=== PATIENT | male | born 1960 | race African-American/Black ===

== ENCOUNTER 2018-09-30 05:30 | Day surgery (SDC) | payer MEDICARE, MEDICAID ==
[2018-09-23 13:17] LABS: BASOPHILS % (AUTO) 2.1 % (0.0-2.0); EOSINOPHILS % (AUTO) 2.3 % (0.0-3.0); HEMATOCRIT 41.8 % (42.0-52.0); HEMOGLOBIN 13.1 G/DL (14.2-18.0); LYMPHOCYTES % (AUTO) 19.4 % (20.0-45.0); MEAN CORPUSCULAR VOLUME 72 FL (80-99); MONOCYTES % (AUTO) 11.7 % (1.0-10.0); NEUTROPHILS % (AUTO) 64.5 % (45.0-75.0); PLATELET COUNT 233 K/UL (150-450); RED BLOOD COUNT 5.78 M/UL (4.70-6.10); RED CELL DISTRIBUTION WIDTH 14.4 % (11.6-14.8); WHITE BLOOD COUNT 6.6 K/UL (4.8-10.8)
[2018-09-23 13:19] LABS: ANION GAP 8 mmol/L (5-15); BLOOD UREA NITROGEN 16 mg/dL (7-18); CALCIUM 9.1 MG/DL (8.5-10.1); CARBON DIOXIDE 28 MMOL/L (21-32); CHLORIDE 103 MMOL/L (98-107); CREATININE 1.1 MG/DL (0.55-1.30); POTASSIUM 3.9 MMOL/L (3.5-5.1); SODIUM 139 MMOL/L (136-145)
--- NOTE | 2018-09-23 16:55 | Diagnostic Imaging Report ---
Indication: Cough Technique: 2 views of the chest Comparison: None Findings: Lungs and pleural spaces are clear. The heart size is normal. There are mild degenerative proliferative changes of the lower thoracic spine. No significant interim change. Impression: Negative
--- NOTE | 2018-09-27 13:30 | Brief Operative Note ---
Immediate Post Operative Note Operative Note Chief Complaint: Blurry Vision Pre-op Diagnosis: Nuclear Sclerotic Cataract Right Eye Procedure: Cataract Extraction With Inner Ocular Lens Implant Right Eye Post-op Diagnosis: same as pre-op Anesthesia: MAC Specimen: none Complications: none Condition: stable Fluids: LR Estimated Blood Loss: none Drains: none Implant(s) used?: Yes Ethan Langley MD Sep 27, 2018 13:30
--- NOTE | 2018-09-27 13:32 | Operative Note - PDOC ---
Operative Note Operative Note Date of Operation/Procedure: Sep 30, 2018 Chief Complaint: Blurry Vision Pre-op Diagnosis: Nuclear Sclerotic Cataract Right Eye Procedure: Cataract Extraction With Inner Ocular Lens Implant Right Eye Post-op Diagnosis: Pseudophakia Post-op Diagnosis: same as pre-op Surgeon: Ethan Langley MD Anesthesia: MAC Specimen: none Complications: none Condition: stable Fluids: LR Estimated Blood Loss: none Drains: none Implant(s) used?: Yes Indications for Procedure Cataract Extraction With Inner Ocular Lens Implant Right Eye Description of Procedure Cataract extraction With IOL Ethan Langley MD Sep 27, 2018 13:32
--- NOTE | 2018-09-27 13:38 | Opthalmology H&P ---
Ophthalmology H&P H&P Chief Complaint: decreased vision in right eye HPI Vision Affects Ability to: read, manage personal affairs HPI Narrative Blurry Vision Exam Visual Acuity: OD: Hand Motion OS:20/80 Eye Exam: normal OU: external exam, palpebral fissure-width, marginal reflex distance, levator function, corneas, anterior chambers; findings: lens - Mature white cataract right eye, fundus exam - Poor view Assessment/Plan Treatment Plan: cataract extraction w/ lens implant Goals of Treatment: improvement of vision Attestation Attestation The risks and benefits of the surgery as well as alternative procedures were explained to the patient in detail. Ethan Langley MD Sep 27, 2018 13:38
--- NOTE | 2018-09-27 13:39 | Pre-Procedure Note/Attestation ---
Pre-Procedure Note/Attestation Complete Prior to Procedure Planned Procedure: right Procedure Narrative: Cataract Extraction With Inner Ocular Lens Implant Right Eye Indications for Procedure Pre-Operative Diagnosis: Nuclear Sclerotic Cataract Right Eye Attestation I attest that I discussed the nature of the procedure; its benefits; risks and complications; and alternatives (and the risks and benefits of such alternatives ), prior to the procedure, with the patient (or the patient's legal sales representative [employer]). I attest that, if there was a reasonable possibility of needing a blood transfusion, the patient (or the patient's legal sales representative [employer]) was given the [facility] standardized written summary, pursuant to the Jake [place] Blood Safety Act ([place] Health and Safety Code # 1645, as amended). I attest that I re-evaluated the patient just prior to the surgery and that there has been no change in the patient's H&P, except as documented below: Ethan Langley MD Sep 27, 2018 13:39
[2018-09-30] VITALS (8 sets, daily range): BP systolic 110–125; BP diastolic 64–88
[~2018-09-30] VITALS: Ht 172.7 cm; Wt 117.9 kg
[~2018-09-30 05:30] MED LIST: DULERA 100 MCG/13 GM INH; IBUPROFEN600 MG ORAL; VENTOLIN HFA18 GM INH
[2018-09-30] MEDS: Cyclopentolate 1% Opth Sol 2ml RIGHT EYE SCH ×3 (06:52→07:23)
[2018-09-30] MEDS: Tobramycin Op Soln 0.3% 5ml RIGHT EYE SCH ×3 (06:53→07:23)
[2018-09-30] MEDS: Tropicamide 1% Opth 15ml Soln RIGHT EYE SCH ×3 (06:53→07:23)
[2018-09-30] MEDS: Phenylephrine 10% Opth Soln 5ml RIGHT EYE SCH ×3 (06:53→07:23)
[2018-09-30] MEDS ORDERED: Akten 3.5% 1ml Btl RIGHT EYE ONE (07:00)
[2018-09-30] MEDS ORDERED: Proparacaine 0.5% Opth Soln 15ml RIGHT EYE ONE (07:00)
[2018-09-30] MEDS ORDERED: Tetracaine 0.5% Opth 4ml Soln RIGHT EYE ONE (07:00)
[2018-09-30] MEDS ORDERED: Diclofenac Sod 0.1% Op Soln RIGHT EYE SCH (07:00)
[2018-09-30] MEDS ORDERED: EPINEPHrine 1mg/1ml Amp ONE (07:35)
[2018-09-30] MEDS ORDERED: BSS 500ml btl ONE (07:35)
[2018-09-30] MEDS ORDERED: Povidone-Iodine 5% opth solution ONE (07:35)
[2018-09-30] MEDS ORDERED: BSS 15ml BTL ONE (07:35)
[2018-09-30] MEDS ORDERED: Sodium Hyaluronate 14 mg/ml 0.85ml ONE (07:35)
[2018-09-30] MEDS ORDERED: LR 1000ml 1,000 ML IVLG SCH (08:05)
--- NOTE | 2018-09-30 08:05 | Anethesia Preoperative Eval ---
Anesthesia Pre-op PMH/ROS General Date of Evaluation: Sep 30, 2018 Time of Evaluation: 08:01 Anesthesiologist: Latasha ASA Score: ASA 3 Mallampati Score Class I : Soft palate, uvula, fauces, pillars visible Class II: Soft palate, uvula, fauces visible Class III: Soft palate, base of uvula visible Class IV: Only hard plate visible Mallampati Classification: Class II Surgeon: Korin Diagnosis: R eye cataract Surgical Procedure: R eye cataract extraction Anesthesia History: none Social History: smoking - h/o Allergies: Coded Allergies: No Known Allergies (Unverified , 09/27/18) Patient NPO?: Yes Past Medical History Cardiovascular: Denies: HTN, CAD, AL, valve dz, arrhythmia, other Pulmonary: Reports: COPD; Denies: asthma, NANCY, other Gastrointestinal/Genitourinary: Reports: GERD; Denies: CRI, ESRD, other Neurologic/Psychiatric: Reports: depression/anxiety, other - chronic pain; Denies: dementia, CVA, TIA Endocrine: Reports: hypothyroidism; Denies: DM, steroids, other HEENT: Reports: cataract (L), cataract (R); Denies: glaucoma, [place] (L), [place] (R), other Hematology/Immune: Reports: DVT - h/o, other - PE; Denies: anemia, bleeding disorder Musculoskeletal/Integumentary: Denies: OA, RA, DJD, DDD, edema, other Other: obesity PMH Narrative: as above PSxH Narrative: shoulder Sx Anesthesia Pre-op Phys. Exam Physician Exam Last Vital Signs Date Time Temp Pulse Resp B/P (MAP) Pulse Ox O2 Delivery O2 Flow Rate FiO2 09/30/18 07:09 97.8 60 20 122/73 98 Room Air Constitutional: NAD Neurologic: CN 2-12 intact Cardiovascular: RRR Respiratory: CTA Gastrointestinal: other - obesity Airway Exam Mallampati Score: Class III MO: limited Neck: short ROM: limited Teeth: missing Dentures: no upper, no lower Anesthesia Pre-op A/P Labs see chart Studies Pre-op Studies: EKG - SR Risk Assessment & Plan Assessment: ASA 3 Plan: MAC Pre-Antibiotics Drug: none Casimiro Pagan MD Sep 30, 2018 08:04
[2018-09-30] MEDS ORDERED: Midazolam 2mg/2ml Inj ONE ×2 (08:07→08:30)
[2018-09-30] MEDS ORDERED: fentaNYL 100 mcg/2 mL IV PRN (08:15)
[2018-09-30] MEDS ORDERED: DiphenhydrAMINE 50mg/ml Inj IVP PRN (08:15)
[2018-09-30] MEDS ORDERED: fentaNYL 100 mcg/2 mL IV ONE (08:30)
[2018-09-30] MEDS ORDERED: LR 1000ml ONE (08:30)
[2018-09-30] MEDS ORDERED: NS Irrig 1000ml ONE (08:30)
[2018-09-30] MEDS ORDERED: Sterile Water Irrig 1000ml IRRIG ONE (08:30)
[2018-09-30] MEDS ORDERED: Propofol 200mg/20ml IV ONE (08:30)
[2018-09-30] MEDS ORDERED: acetaZOLAMIDE 500mg Inj ONE (09:03)
--- NOTE | 2018-09-30 09:37 | Immediate Post-Op Evaluation ---
Immediate Post-Op Evalulation Immediate Post-Op Evalulation Procedure: R eye cataract extraction with IOL Date of Evaluation: Sep 30, 2018 Time of Evaluation: 09:02 IV Fluids: 300 Blood Products: none Estimated Blood Loss: none Urinary Output: none Blood Pressure Systolic: 123 Blood Pressure Diastolic: 76 Pulse Rate: 67 Respiratory Rate: 20 O2 Sat by Pulse Oximetry: 98 Temperature (Fahrenheit): 98.1 Pain Score (1-10): 1 Nausea: No Vomiting: No Complications none Patient Status: awake, patent, none Hydration Status: adequate Casimiro Pagan MD Sep 30, 2018 09:37
--- NOTE | 2018-09-30 09:46 | 48 Hour Post Anesthesia Eval ---
Post Anesthesia Evaluation Procedure: R eye cataract extraction with IOL Date of Evaluation: Sep 30, 2018 Time of Evaluation: 09:45 Blood Pressure Systolic: 132 0: 59 Pulse Rate: 64 Respiratory Rate: 20 Temperature (Fahrenheit): 97.8 O2 Sat by Pulse Oximetry: 98 Airway: patent Nausea: No Vomiting: No Pain Intensity: 1 Hydration Status: adequate Cardiopulmonary Status: stable Mental Status/LOC: patient returned to baseline Follow-up Care/Observations: n/a Post-Anesthesia Complications: none Follow-up care needed: ready to discharge Casimiro Pagan MD Sep 30, 2018 09:46
[2018-09-30] MEDS ORDERED: Pilocarpine 1% Opth 15ml Soln ONE (10:45)
[2018-09-30] MEDS ORDERED: Maxitrol Opth Oint 3.5gm ONE (10:45)
[2018-09-30] MEDS ORDERED: Pred Forte 1% Opth Susp 1ml ONE (10:45)
[2018-09-30] MEDS ORDERED: Dexamethasone 4mg/ml vial ONE (10:45)
--- NOTE | 2018-10-01 14:47 | Brief Operative Note ---
Immediate Post Operative Note Operative Note Chief Complaint: blurry vision Pre-op Diagnosis: Nuclear Sclerotic Cataract Right Eye Procedure: Phaco with IOL, OD Post-op Diagnosis: Pseudophakia Post-op Diagnosis: same as pre-op Findings: consistent w/pre-op dx studies Surgeon: Korin Anesthesiologist: Latasha Anesthesia: MAC Specimen: none Complications: none Condition: stable Fluids: LR Estimated Blood Loss: none Drains: none Implant(s) used?: Yes Ethan Langley MD Oct 01, 2018 14:47
--- NOTE | 2018-10-01 14:48 | Operative Note - PDOC ---
Operative Note Operative Note Date of Operation/Procedure: Sep 30, 2018 Chief Complaint: blurry vision Pre-op Diagnosis: Nuclear Sclerotic Cataract Right Eye Procedure: Phaco with IOL, OD Post-op Diagnosis: Pseudophakia Post-op Diagnosis: same as pre-op Operative Findings: consistent w/pre-op dx studies Surgeon: Korin Anesthesiologist: Latasha Anesthesia: MAC Specimen: none Complications: none Condition: stable Fluids: LR Estimated Blood Loss: none Drains: none Implant(s) used?: Yes Indications for Procedure cataract Description of Procedure This patient has been complaining visually significant cataract in the affected eye with the best corrected visual acuity under moderate glare conditions worse. The patient complains of difficulties with glare in performing activities of daily living and wants to manage personal affairs with comfort and accuracy and see well enough to move with safety at home and outdoors. The risks, benefits and alternatives of the procedure were discussed with the patient in the office prior to scheduling surgery. All questions from the patient were answered after the surgical procedure was explained in detail. The risks of the procedure as explained to the patient include, but are not limited to, pain, infection, bleeding, loss of vision, retinal detachment, need for further surgery, loss of lens nucleus, double vision, etc. Alternative procedures were discussed which include, to do nothing or seek a second opinion. Informed consent for this procedure was obtained from the patient. The patient was referred to a primary care physician for a cardiopulmonary clearance prior to surgery, after proper evaluation was done patient was properly scheduled for outpatient surgery. The patient was brought to the operating room where the anesthesiologist established I.V. lines and cardiac monitoring leads. Mild intravenous sedation was administered. The patient was then prepared with a 5% solution of povidone -iodine to the conjunctival fornix and lashes, and a 5% solution of povidone- iodine to the lids and periorbital skin. The patient was then draped in the usual sterile fashion. A lid speculum was then placed in the operative eye. A keratome blade was then used to create a biplanar incision into the anterior chamber. Viscoelastics was then instilled into the anterior chamber. A curvilinear capsulorrhexis was then fashioned with an utrata forceps followed by hydrodissection and hydro delineation of the lens nucleus. Paracentesis incision was made at 3 o'clock with sharp blade. The phacoemulsification unit, after being properly adjusted and tested, was then used to emulsify the nucleus followed by aspiration and irrigation of residual cortical material. Healon was then instilled into the anterior chamber. The corneal wound was then enlarged to the size of the optic with the abimael keratome blade. The intraocular lens was then inspected for right power and size and thought to be satisfactory. Then the lens was gently placed in the capsular bag. Positioning within the capsular bag was confirmed by direct visualization. Optic centration was accomplished with a Sinskey hook. Viscoelastics was removed from the anterior chamber using the irrigation and aspiration unit. The corneal wound was then tested for leaks and none were found. The lid speculum were then removed. Sponge and needle counts were correct. An eye patch and shield were placed over the operative eye. The patient was taken to the recovery room in stable condition. There were no complications. The patient tolerated the procedure well. The patient was then transferred to the ambulatory surgery unit in stable and satisfactory condition , was given detailed written instructions and asked to follow up in the office the next day. Ethan Langley MD Oct 01, 2018 14:48
== END 2018-09-30 11:00 | disposition home or self-care (01) ==
LOC: SUR 05:30
DX: H25.11 Age-related nuclear cataract, right eye (principal); J44.9 Chronic obstructive pulmonary disease, unspecified; K21.9 Gastro-esophageal reflux disease without esophagitis; E03.9 Hypothyroidism, unspecified; F32.9 Major depressive disorder, single episode, unspecified; F41.9 Anxiety disorder, unspecified; G89.29 Other chronic pain; E66.9 Obesity, unspecified; Z68.41 Body mass index [BMI] 40.0-44.9, adult; Z87.891 Personal history of nicotine dependence; Z86.718 Personal history of other venous thrombosis and embolism; Z86.711 Personal history of pulmonary embolism
CPT/HCPCS: 36415; 66984; 71046; 80048; 85025; 85610; 85730; J0171; J1100; J1120; J2250; J2704; J3010; J3370; V2632; 94003; 94150

== ENCOUNTER 2018-10-28 07:00 | Day surgery (SDC) | payer MEDICARE, MEDICAID ==
--- NOTE | 2018-10-25 11:20 | Opthalmology H&P ---
Ophthalmology H&P H&P Chief Complaint: decreased vision in left eye HPI Vision Affects Ability to: read, manage personal affairs Past Ocular History: other - Psuedo OD HPI Narrative Blurry vison Exam Visual Acuity: OD 20/20 OS 20/80 Eye Exam: normal OU: external exam, palpebral fissure-width, marginal reflex distance, levator function, corneas, anterior chambers, lens, fundus exam Assessment/Plan Treatment Plan: cataract extraction w/ lens implant Goals of Treatment: improvement of vision, enhance quality of life Attestation Attestation The risks and benefits of the surgery as well as alternative procedures were explained to the patient in detail. Ethan Langley MD Oct 25, 2018 11:20
--- NOTE | 2018-10-25 11:22 | Pre-Procedure Note/Attestation ---
Pre-Procedure Note/Attestation Complete Prior to Procedure Planned Procedure: left Procedure Narrative: Cataract Extraction With IOL Implant Left Eye Indications for Procedure Pre-Operative Diagnosis: Cortical Cataract Left Eye Attestation I attest that I discussed the nature of the procedure; its benefits; risks and complications; and alternatives (and the risks and benefits of such alternatives ), prior to the procedure, with the patient (or the patient's legal telemarketing sales representative). I attest that, if there was a reasonable possibility of needing a blood transfusion, the patient (or the patient's legal telemarketing sales representative) was given the [facility] standardized written summary, pursuant to the Jake [place] Blood Safety Act ([place] Health and Safety Code # 1645, as amended). I attest that I re-evaluated the patient just prior to the surgery and that there has been no change in the patient's H&P, except as documented below: Ethan Langley MD Oct 25, 2018 11:22
[2018-10-26 09:12] LABS: EOSINOPHILS % (AUTO) 3.3 % (0.0-3.0); HEMATOCRIT 43.1 % (42.0-52.0); HEMOGLOBIN 13.2 G/DL (14.2-18.0); LYMPHOCYTES % (AUTO) 17.3 % (20.0-45.0); MEAN CORPUSCULAR VOLUME 73 FL (80-99); MONOCYTES % (AUTO) 12.4 % (1.0-10.0); NEUTROPHILS % (AUTO) 64.1 % (45.0-75.0); PLATELET COUNT 213 K/UL (150-450); RED BLOOD COUNT 5.89 M/UL (4.70-6.10); RED CELL DISTRIBUTION WIDTH 14.1 % (11.6-14.8)
[2018-10-26 09:16] LABS: ANION GAP 7 mmol/L (5-15); BLOOD UREA NITROGEN 29 mg/dL (7-18); CALCIUM 9.3 MG/DL (8.5-10.1); CARBON DIOXIDE 29 MMOL/L (21-32); CHLORIDE 104 MMOL/L (98-107); CREATININE 1.2 MG/DL (0.55-1.30); POTASSIUM 4.1 MMOL/L (3.5-5.1); SODIUM 140 MMOL/L (136-145)
[2018-10-26 09:37] LABS: INR 0.9 (0.9-1.1)
[2018-10-28] VITALS (8 sets, daily range): BP systolic 119–131; BP diastolic 72–89
[~2018-10-28] VITALS: Ht 172.7 cm; Wt 121.1 kg
[~2018-10-28 07:00] MED LIST changes: +Akten 3.5% 1ml Btl LEFT EYE ONE; +Dexamethasone 4mg/ml vial ONE; +Maxitrol Opth Oint 3.5gm ONE; +Pilocarpine 1% Opth 15ml Soln ONE; +Pred Forte 1% Opth Susp 1ml ONE; +Proparacaine 0.5% Opth Soln 15ml LEFT EYE ONE; +Tetracaine 0.5% Opth 4ml Soln LEFT EYE ONE
[2018-10-28] MEDS: Diclofenac Sod 0.1% Op Soln LEFT EYE SCH ×3 (10:25→10:45)
[2018-10-28] MEDS: Tobramycin Op Soln 0.3% 5ml LEFT EYE SCH ×3 (10:25→10:45)
[2018-10-28] MEDS: Phenylephrine 10% Opth Soln 5ml LEFT EYE SCH ×3 (10:25→10:45)
[2018-10-28] MEDS: Tropicamide 1% Opth 15ml Soln LEFT EYE SCH ×3 (10:25→10:45)
[2018-10-28] MEDS: Cyclopentolate 1% Opth Sol 2ml LEFT EYE SCH ×3 (10:26→10:45)
[2018-10-28] MEDS ORDERED: LR 1000ml ONE (12:00)
[2018-10-28] MEDS ORDERED: fentaNYL 100 mcg/2 mL IV ONE (12:14)
[2018-10-28] MEDS ORDERED: Midazolam 2mg/2ml Inj ONE (12:15)
[2018-10-28] MEDS ORDERED: LR 1000ml 1,000 ML IVLG SCH (12:30)
[2018-10-28] MEDS ORDERED: DiphenhydrAMINE 50mg/ml Inj IVP PRN (12:30)
[2018-10-28] MEDS ORDERED: Midazolam 2mg/2ml Inj IVP PRN (12:30)
[2018-10-28] MEDS ORDERED: Atropine Inj 1mg/10ml Syr IV PRN (12:30)
[2018-10-28] MEDS ORDERED: fentaNYL 100 mcg/2 mL IV PRN (12:30)
--- NOTE | 2018-10-28 12:36 | Anethesia Preoperative Eval ---
Anesthesia Pre-op PMH/ROS General Date of Evaluation: Oct 28, 2018 Time of Evaluation: 12:15 Anesthesiologist: khris ASA Score: ASA 3 Mallampati Score Class I : Soft palate, uvula, fauces, pillars visible Class II: Soft palate, uvula, fauces visible Class III: Soft palate, base of uvula visible Class IV: Only hard plate visible Mallampati Classification: Class II Surgeon: li Diagnosis: nuclear sclerotic cataract left eye Surgical Procedure: cataract extraction w/iol implant left eye Anesthesia History: none Social History: smoking - forrmer smoker Family History: no anesthesia problems Allergies: Coded Allergies: No Known Allergies (Unverified , 10/28/18) Medications: see eMAR Patient NPO?: Yes Past Medical History Pulmonary: Reports: asthma, other - pulmonary embolism PSxH Narrative: cataract extraction w/ iol implant right eye, shoulder sx Anesthesia Pre-op Phys. Exam Physician Exam Last Vital Signs Date Time Temp Pulse Resp B/P (MAP) Pulse Ox O2 Delivery O2 Flow Rate FiO2 10/28/18 10:40 Room Air 10/28/18 10:00 98.1 62 18 131/89 98 Constitutional: NAD Neurologic: CN 2-12 intact Cardiovascular: RRR Respiratory: CTA Gastrointestinal: S/NT/ND Airway Exam Mallampati Score: Class II MO: limited Neck: flexible TMD: 2fb ROM: limited Anesthesia Pre-op A/P Labs Labs Test 10/26/18 08:50 White Blood Count 8.0 K/UL (4.8-10.8) Red Blood Count 5.89 M/UL (4.70-6.10) Hemoglobin 13.2 G/DL (14.2-18.0) Hematocrit 43.1 % (42.0-52.0) Mean Corpuscular Volume 73 FL (80-99) Mean Corpuscular Hemoglobin 22.5 PG (27.0-31.0) Mean Corpuscular Hemoglobin Concent 30.7 G/DL (32.0-36.0) Red Cell Distribution Width 14.1 % (11.6-14.8) Platelet Count 213 K/UL (150-450) Mean Platelet Volume 8.3 FL (6.5-10.1) Neutrophils (%) (Auto) 64.1 % (45.0-75.0) Lymphocytes (%) (Auto) 17.3 % (20.0-45.0) Monocytes (%) (Auto) 12.4 % (1.0-10.0) Eosinophils (%) (Auto) 3.3 % (0.0-3.0) Basophils (%) (Auto) 3.0 % (0.0-2.0) Prothrombin Time 10.0 SEC (9.30-11.50) Prothromb Time International Ratio 0.9 (0.9-1.1) Activated Partial Thromboplast Time 28 SEC (23-33) Sodium Level 140 MMOL/L (136-145) Potassium Level 4.1 MMOL/L (3.5-5.1) Chloride Level 104 MMOL/L (98-107) Carbon Dioxide Level 29 MMOL/L (21-32) Anion Gap 7 mmol/L (5-15) Blood Urea Nitrogen 29 mg/dL (7-18) Creatinine 1.2 MG/DL (0.55-1.30) Estimat Glomerular Filtration Rate > 60 mL/min (>60) Glucose Level 90 MG/DL (74-106) Calcium Level 9.3 MG/DL (8.5-10.1) Risk Assessment & Plan Assessment: asa3 Plan: mac Status Change Before Surgery: No Pre-Antibiotics Drug: Fawn Mercer MD Oct 28, 2018 12:36
--- NOTE | 2018-10-28 13:15 | Pre-op HX & Phy Repo 2 SIG ---
DATE OF ADMISSION: 10/28/2018 PRESURGICAL INTERNAL MEDICINE HISTORY AND PHYSICAL DATE OF EVALUATION: 10/28/2018. REASON FOR EVALUATION: I was asked by Dr. Ethan Langley to see this 58-year-old male, who is going for elective surgery on the left eye. The patient has nuclear sclerotic cataract, left eye. The patient was examined. Chart was reviewed at the surgical department of [facility]. PAST MEDICAL HISTORY AND REVIEW OF SYSTEMS: Remarkable for bronchial asthma, heartburn, and obesity. The patient denies history of heart attack, chest pain, palpitation, or high blood pressure. No stroke. No seizures. Denies history of Parkinson disease. No history of anemia or diabetes. No history of thyroid problem. Denies history of hepatitis or GI bleeding. No history of prostate problem or renal insufficiency. The patient has a varicose vein in the right calf. PAST SURGICAL HISTORY: Remarkable for right eye cataract last month by Dr. Ethan Langley. FAMILY HISTORY: Mother alive and okay. Father killed in a car accident. ALLERGIES: Not known. PRESENT MEDICATION: Inhaler Ventolin and Dulera, and p.r.n. Tums. SOCIAL HISTORY: The patient smoked for approximately six months, 29 years ago. Denies alcohol or street drug use. PHYSICAL EXAMINATION: GENERAL: Alert, well-developed. VITAL SIGNS: Blood pressure 131/89, temperature 98.1, pulse 62 regular, O2 saturation 98% on room air. The patient's weight 263 pounds and 5 feet 10 inches tall. SKIN: Dry and warm. No rashes. No open wound. LYMPH NODES: Not enlarged. HEENT: Head, normocephalic, atraumatic. Ears, no discharge. No hearing problem. Eyes, full description per Dr. Ethan Langley. Mouth, clear and moist. No dentures. Tongue, midline. NECK: Supple. No jugular venous distention. Carotids artery +2. Trachea midline. CHEST: No deformity or asymmetry. LUNGS: Clear to auscultation and percussion. HEART: Sounds distant. No rales or rhonchi. ABDOMEN: Soft and obese. No rebound. Liver and spleen not enlarged. EXTREMITIES: There is +1 ankle edema. Varicose veins in the right calf. GENITOURINARY TRACT: No dysuria. No CVA tenderness. NERVOUS SYSTEM: No asymmetry or tremors. No nystagmus. The patient did not eat or drink from 10 p.m. yesterday. EKG, lab work in the chart. IMPRESSION: 1. Cataract, left eye. 2. Bronchial asthma. 3. Hypertension . 4. Obesity. 5. Varicose vein, lower extremities. 6. GERD. PLAN: Cataract extraction, left eye with intraocular lens implant per Dr. Ethan Langley. CONCLUSION: The patient has history of bronchial asthma probably controlled with maintenance inhalers. The patient is obese and his elevation of diastolic blood pressure not treated. The patient did not eat or drink from 10 p.m. last night. The patient's condition optimized for surgery. Thank you very much, Dr. Langley, for privilege to participate in presurgical care of this interesting patient. Abhay Burks M.D. DR: LILY JOB#: [id number] CC:
[2018-10-28] MEDS ORDERED: BSS 500ml btl ONE (13:27)
[2018-10-28] MEDS ORDERED: Povidone-Iodine 5% opth solution ONE (13:27)
[2018-10-28] MEDS ORDERED: BSS 15ml BTL ONE (13:27)
[2018-10-28] MEDS ORDERED: EPINEPHrine 1mg/1ml Amp ONE (13:27)
[2018-10-28] MEDS ORDERED: Sodium Hyaluronate 14 mg/ml 0.85ml ONE (13:27)
--- NOTE | 2018-10-28 13:51 | Immediate Post-Op Evaluation ---
Immediate Post-Op Evalulation Immediate Post-Op Evalulation Procedure: cataract extraction w/iol implant left eye Date of Evaluation: Oct 28, 2018 Time of Evaluation: 13:19 IV Fluids: 400ml lr Blood Products: none Estimated Blood Loss: negligible Blood Pressure Systolic: 119 Blood Pressure Diastolic: 74 Pulse Rate: 56 Respiratory Rate: 18 O2 Sat by Pulse Oximetry: 100 Temperature (Fahrenheit): 98.4 Pain Score (1-10): 0 Nausea: No Vomiting: No Complications none Patient Status: awake, reacts, patent Hydration Status: adequate Drug: Fawn Mercer MD Oct 28, 2018 13:51
--- NOTE | 2018-10-28 13:55 | 48 Hour Post Anesthesia Eval ---
Post Anesthesia Evaluation Procedure: cataract extraction w/iol implant left eye Date of Evaluation: Oct 28, 2018 Time of Evaluation: 13:21 Blood Pressure Systolic: 121 0: 77 Pulse Rate: 57 Respiratory Rate: 18 Temperature (Fahrenheit): 98.4 O2 Sat by Pulse Oximetry: 100 Airway: patent Nausea: No Vomiting: No Pain Intensity: 0 Hydration Status: adequate Cardiopulmonary Status: stable Mental Status/LOC: patient returned to baseline Post-Anesthesia Complications: none Follow-up care needed: N/A Fawn Roberts MD Oct 28, 2018 13:55
--- NOTE | 2018-10-29 14:03 | Brief Operative Note ---
Immediate Post Operative Note Operative Note Chief Complaint: blurry vision Pre-op Diagnosis: Cortical Cataract Left Eye Procedure: phaco with IOL Post-op Diagnosis: Pseudophakia Post-op Diagnosis: same as pre-op Findings: consistent w/pre-op dx studies Surgeon: Korin Anesthesiologist: José Miguel Alberts Anesthesia: MAC Specimen: none Complications: none Condition: stable Fluids: LR Estimated Blood Loss: none Drains: none Implant(s) used?: Yes Ethan Langley MD Oct 29, 2018 14:03
--- NOTE | 2018-10-29 14:04 | Operative Note - PDOC ---
Operative Note Operative Note Date of Operation/Procedure: Oct 28, 2018 Chief Complaint: blurry vision Pre-op Diagnosis: Cortical Cataract Left Eye Procedure: phaco with IOL Post-op Diagnosis: Pseudophakia Post-op Diagnosis: same as pre-op Operative Findings: consistent w/pre-op dx studies Surgeon: Korin Anesthesiologist: José Miguel Alberts Anesthesia: MAC Specimen: none Complications: none Condition: stable Fluids: LR Estimated Blood Loss: none Drains: none Implant(s) used?: Yes Indications for Procedure cataract Description of Procedure This patient has been complaining visually significant cataract in the affected eye with the best corrected visual acuity under moderate glare conditions worse. The patient complains of difficulties with glare in performing activities of daily living and wants to manage personal affairs with comfort and accuracy and see well enough to move with safety at home and outdoors. The risks, benefits and alternatives of the procedure were discussed with the patient in the office prior to scheduling surgery. All questions from the patient were answered after the surgical procedure was explained in detail. The risks of the procedure as explained to the patient include, but are not limited to, pain, infection, bleeding, loss of vision, retinal detachment, need for further surgery, loss of lens nucleus, double vision, etc. Alternative procedures were discussed which include, to do nothing or seek a second opinion. Informed consent for this procedure was obtained from the patient. The patient was referred to a primary care physician for a cardiopulmonary clearance prior to surgery, after proper evaluation was done patient was properly scheduled for outpatient surgery. The patient was brought to the operating room where the anesthesiologist established I.V. lines and cardiac monitoring leads. Mild intravenous sedation was administered. The patient was then prepared with a 5% solution of povidone -iodine to the conjunctival fornix and lashes, and a 5% solution of povidone- iodine to the lids and periorbital skin. The patient was then draped in the usual sterile fashion. A lid speculum was then placed in the operative eye. A keratome blade was then used to create a biplanar incision into the anterior chamber. Viscoelastics was then instilled into the anterior chamber. A 3-mm single pass clear corneal incision was made just anterior to the vascular arcade of the temporal limbus using a keratome. Anterior capsulorrhexis was created. The nucleus was hydrodissected and hydrodelineate with g27 cannula and was freely movable in the capsular bag. The nucleus was then phacoemulsified. Following the deep groove formation, the lens was split bimanually and epicortex removed under vacuum burst-mode phacoemulsification. Peripheral cortex was removed with the irrigation and aspiration handpiece. The capsular bag was expanded with viscoelastic. The intraocular lens was then inspected for right power and size and thought to be satisfactory. The implant was inspected under the microscope and found to be free of defects. The implant was inserted into the cartridge system under viscoelastic and placed in the capsular bag. The trailing haptic was positioned with the cartridge system. Viscoelastics was removed from the anterior chamber using the irrigation and aspiration unit. The corneal wound was then tested for leaks and none were found. The lid speculum were then removed. Sponge and needle counts were correct. An eye patch and shield were placed over the operative eye. The patient was taken to the recovery room in stable condition. There were no complications. The patient tolerated the procedure well. The patient was then transferred to the ambulatory surgery unit in stable and satisfactory condition , was given detailed written instructions and asked to follow up in the office the next day. Ethan Langley MD Oct 29, 2018 14:04
== END 2018-10-28 14:10 | disposition home or self-care (01) ==
LOC: SUR 07:00
DX: H25.012 Cortical age-related cataract, left eye (principal); J45.909 Unspecified asthma, uncomplicated; R12 Heartburn; E66.9 Obesity, unspecified; I10 Essential (primary) hypertension; I83.90 Asymptomatic varicose veins of unspecified lower extremity; K21.9 Gastro-esophageal reflux disease without esophagitis; Z86.711 Personal history of pulmonary embolism
CPT/HCPCS: 36415; 66984; 80048; 85025; 85610; 85730; J0171; J1100; J2250; J3010; J3370; V2632; 94003; 94150